=== PATIENT | female | born 1960 | race Caucasian/White ===

== ENCOUNTER 2023-09-17 23:32 | Emergency (ER) | payer OTHER, SELFPAY ==
[2023-09-17 23:43] VITALS: BP 130/90
--- NOTE | 2023-09-18 00:18 | ED.GENMED ---
History of Present Illness
<LUIS Oglesby - Last Filed: 09/18/23 01:11>
General
Chief Complaint: Throat Problem
Source: patient
Exam Limitations: none
Time Seen by Provider: 09/18/23 00:06
Travel History
Have you had any contact with someone who has COVID-19?: No
Do you have any symptoms of coronavirus? Fever > 100 degrees, chills, cough, shortness of breath, sore throat, loss of taste or smell, muscle aches, or headache?: No
History of Present Illness
History of Present Illness:
This is a 63 year old female that comes in with c/o possible aspiration of food. States that she today she was eating a slice of red cabbage and she feels like she may have aspirated it or its in her throat. States that she has Parkinson and at the
end of the day sometimes she has difficulty with swallowing. States that she is able to swallow her saliva and that she is not coughing and this may be nothing but she started to google and she got nervous. States that she is occasionally SOB in the
evening. Denies any fever, chills, chest pain, abd pain, nausea, vomiting, diarrhea, headache, dizziness, urinary burning.
Past History
<LUIS Oglesby - Last Filed: 09/18/23 01:11>
Past History
ED Past Medical History: Psychiatric (Anxiety depression, ) and Other (Parkinson's, Neck pain, )
ED Past Surgical History: (X 2), Orthopedic (Left humerus plate) and Other (Breast reduction, Tummy Tuck)
Social History
Tobacco: Non-smoker
Alcohol: None
Drug: None
Personal:
Living: with family
Review of Systems
<LUIS Oglesby - Last Filed: 09/18/23 01:11>
Review of Systems
All Other Systems: ROS reviewed and negative except as documented in HPI and ROS
Constitutional: Reports no symptoms; Denies fever or chills
EENT: Reports other (Feels like there is something in her throat)
Respiratory: Reports no symptoms; Denies cough or trouble breathing
Cardiac: Reports no symptoms; Denies chest pain
ABD/GI: Reports no symptoms; Denies abdominal pain, nausea, vomiting or diarrhea
: Reports no symptoms; Denies dysuria, frequency or urgency
Musculoskeletal: Reports no symptoms
Skin: Reports no symptoms
Neurological: Reports no symptoms; Denies dizzy or headache
Psychiatric: Reports no symptoms
Phy Exam
<LUIS Oglesby - Last Filed: 09/18/23 01:11>
General Physical Exam
General Presentation: no apparent distress
General age: appears stated age
General Skin: warm and dry
General Habitus: normal
General Mental: alert
General Hydration: appears well hydrated
ENT Exam
ENT Exam: TM's normal, pharynx normal, neck supple and other
Eye Exam
Eye Exam: EOMI
Cardiovascular Exam
Cardiovascular Exam: regular rate/rhythm, no edema, no murmur and normal peripheral pulses
Pulmonary Exam
Pulmonary Exam: lungs clear, no respiratory distress, no rales, chest non tender, no crackles, no rhonchi, no wheezing and no cough
Gastrointestinal Exam
Gastrointestinal Exam: normal bowel sounds, non tender, soft, no organomegaly, no pulsatile mass and non distended
Musculoskeletal Exam
Musculoskeletal Exam: full ROM and no edema
Skin Exam
Skin Exam: normal color, warm/dry, no rash and no petechia
Psychiatric Exam
Psychiatric Exam: normal mood/affect
Course
<LUIS Oglesby - Last Filed: 09/18/23 01:11>
Orders/Labs/Results
Orders:
Orders
09/18/23 00:18
Mag Hydrox/Al Hydrox/Simeth [Maalox] 30 ml PO NOW STA
CR Chest - 2 Views Urgent
Comment:
Reason For Exam: Questionable aspiration
09/18/23 01:06
Prednisone [Deltasone] 50 mg PO NOW STA
Vital Signs
Initial and Last Documented VS:
Initial Vital Signs
Temp Pulse Resp BP Pulse Ox
97.4 F 90 18 130/90 100
09/17/23 23:43 09/17/23 23:43 09/17/23 23:43 09/17/23 23:43 09/17/23 23:43
Last Documented Vital Signs
Temp Pulse Resp BP Pulse Ox
97.4 F 74 18 105/88 97
09/17/23 23:43 09/18/23 00:58 09/17/23 23:43 09/18/23 00:58 09/18/23 00:58
Tail Sawyer consulted with Physician
Tail Sawyer consulted with physician?: Yes
Name of Physician Consulted: Dr. Copeland
<Celina Copeland, DO - Last Filed: 09/18/23 01:21>
Orders/Labs/Results
Orders:
Orders
09/18/23 00:18
Mag Hydrox/Al Hydrox/Simeth [Maalox] 30 ml PO NOW STA
CR Chest - 2 Views Urgent
Comment:
Reason For Exam: Questionable aspiration
09/18/23 01:06
Prednisone [Deltasone] 50 mg PO NOW STA
Vital Signs
Initial and Last Documented VS:
Initial Vital Signs
Temp Pulse Resp BP Pulse Ox
97.4 F 90 18 130/90 100
09/17/23 23:43 09/17/23 23:43 09/17/23 23:43 09/17/23 23:43 09/17/23 23:43
Last Documented Vital Signs
Temp Pulse Resp BP Pulse Ox
97.4 F 74 18 105/88 97
09/17/23 23:43 09/18/23 00:58 09/17/23 23:43 09/18/23 00:58 09/18/23 00:58
<LUIS Oglesby - Last Filed: 09/18/23 01:11>
MDM/Problems Addressed
Differential Diagnosis Includes:
Esophageal scratch,
MDM/Problems Addressed:
This is a 63 year old female that comes in with c/o the possibility of aspiration a piece of food or it being stuck in her throat. States that with the Parkinson at night sometimes she has difficulty swallowing. States that she is not sure if she
aspirated the red cabbage or if it is in her throat.
Will get chest x-ray and given Maalox.
Back into see patient. Patient states that the Maalox did help. Patient is not coughing and is able to swallow water and her saliva. Explained that her chest x-ray is normal and that this may just be a little scratch. Patient was seen by Dr. Copeland
and reassured. Will discharge patient home.
Chronic conditions affecting care:
Parkinsons
Acute Exacerbation and/or Progression of Chronic Illness:
NA
<LUIS Oglesby - Last Filed: 09/18/23 01:11>
*Radiology
Radiology exam reviewed: preliminary read by ED provider (Chest- negative for signs of aspiration or Pneumonia. )
*Pulse Oximetry
Patient hypoxic: no
*EKG
Interpreted by ED Provider?: NA
Rate: EKG- N/A
*Histological Illustrator Interpretation
Rate: Histological Illustrator- N/A
*Critical Care Note
Total Time (30-74mins, 75-104mins- exclusive of procedures): Not Applicable
ED Attending Note
<LUIS Oglesby - Last Filed: 09/18/23 01:11>
-
Portions of this chart may have been created with voice recognition software.� Occasional wrong word or��sound alike� substitutions may have occurred due to the inherent limitations of voice recognition software.
<Celina Copeland DO - Last Filed: 09/18/23 01:21>
ED Attending Note
Patient seen and examined by attending physician: Yes
I performed the substantive portion of visit, reviewed & personally made and approve the management plan that is documented in note by myself or PATTY.: Yes
I performed a history and physical exam of patient and discussed management with resident, I reviewed resident's note and agree with documented findings and plan of care.: Yes
ED Attending Note:
63-year-old woman with history of Parkinson's disease presents with globus sensation that began this evening, worse when lying supine.
After 'googling' her symptoms, she was concerned for potential retained food, specifically concerned for a string of red cabbage in her posterior pharynx.
She ate a salad that contained thin strips of red cabbage for late lunch and admits that she had no difficulty swallowing while consuming the salad. She had no episodes of gagging or coughing.
She had no difficulty swallowing her dinner as well. No episodes of coughing nor choking.
Globus sensation is temporized when swallowing liquids and improved after a dose of Maalox.
She has not had a cough, no shortness of breath, no chest pain, no nausea nor vomiting.
She does admit to frequently attempting to clear her throat tonight, concern for potential retained food.
No history of similar episodes in the past.
63-year-old appears her stated age, bright and alert, pleasant, appears in no acute distress. Respirations are easy nonlabored. Speech is clear. There is no stridor no cough. No hoarseness.
HEENT: Oral mucosa is moist. Posterior pharynx is clear. There is note of very minimal uvular edema but no erythema, no ulcerations nor exudate.
Neck is supple, nontender, no adenopathy. Trachea is midline, nontender.
Lungs are clear to auscultation. Respirations are easy and unlabored.
History is not consistent with aspiration nor retained esophageal food bolus. She had no episodes of gagging or choking or coughing.
Exam is remarkable for very minimal uvular edema which I suspect is local trauma in nature from frequent, deliberate clearing of her throat.
She is swallowing well, handling secretions well.
Chest x-ray is unremarkable.
Mild uvulitis appears local irritation related. I suspect this is causing globus sensation.
Overall nontoxic in appearance and swallowing well without difficulty.
I have offered a one-time dose of prednisone and recommend supportive measures, elevating head of bed on a few extra pillows, staying well-hydrated on a daily basis.
Humidifier or vaporizer at nighttime.
Prompt follow-up with PCP for recheck.
Return precautions discussed.
Discharge Plan
Departure
Discharge Problem:
Throat irritation
Prescriptions:
No Action
carbidopa-levodopa 1 TABLET tablet extended release
1 tab PO .Q3H WHILE AWAKE
Patient Comments:
patient takes 2 doses of sinimet but one is extended release and she takes them at the same time
carbidopa-levodopa 1 TABLET tablet
1 tab PO .Q3H WHILE AWAKE
escitalopram oxalate 10 MG tablet
10 mg PO DAILY
rasagiline [Azilect] 1 MG tablet
1 mg PO DAILY
multivitamin with folic acid [Tab-A-Angy] 1 TABLET tablet
1 tab PO DAILY
Ropinirole
6 mg PO DAILY@1200
sennosides [senna] 1 TABLET tablet
2 tab PO BID 0RF
acetaminophen 325 MG tablet
650 mg PO Q4HPRN PRN (Reason: headache, temp >101F) 0RF
aspirin 325 MG tablet
325 mg PO DAILY Qty: 30 0RF
Rx Instructions:
one daily 4 weeks to prevent blood clots
magnesium hydroxide 30 ML suspension
30 ml PO [id number] PRN (Reason: constipation) 0RF
docusate sodium 100 MG capsule
100 mg PO BID 0RF
alum-mag hydroxide-simeth [Mag-Al Plus] 30 ML suspension
30 ml PO Q4HPRN PRN (Reason: indigestion) 0RF
oxycodone 5 MG tablet
5 mg PO Q4HPRN PRN (Reason: mild pain) Qty: 30 0RF
ferrous sulfate [FeroSul] 325 MG tablet
325 mg PO DAILY Qty: 30 0RF
Referrals:
Marvin Dias MD [Family Provider] -
Interventions
Interventions:
*Risk Screen - Suicide Last Done: 09/17/23 23:43
*Neglect/Abuse Screening Last Done: 09/17/23 23:43
ED-EENT Assessment Last Done: 09/18/23 00:44
ED- Pulmonary Assessment Last Done: 09/18/23 00:44
[2023-09-18] MEDS: MAALOX 30 ML PO (00:21)
[2023-09-18 00:58] VITALS: BP 105/88
[2023-09-18] MEDS: DELTASONE 50 MG PO (01:09)
== END 2023-09-18 01:19 | disposition home or self-care (01) ==
LOC: EMR 23:32
PROVIDERS: EMERGENCY PHYSICIAN Emergency Medicine; FAMILY PHYSICIAN Family Medicine
DX: R07.0 Pain in throat (principal); G20.A1 Parkinson's disease without dyskinesia, without mention of fluctuations
CPT/HCPCS: 99283; 71046

== ENCOUNTER → 2023-10-25 16:09 | Outpatient (REF) | payer OTHER, SELFPAY | LOC: RAD 16:09 | PROVIDERS: ATTENDING PHYSICIAN Obstetrics & Gynecology; FAMILY PHYSICIAN Family Medicine | DX: R10.2 Pelvic and perineal pain (principal) | CPT/HCPCS: 76830; 76856 ==

== ENCOUNTER → 2024-03-19 09:26 | Outpatient (REF) | payer OTHER, SELFPAY | LOC: HWWDC 09:26 | PROVIDERS: ATTENDING PHYSICIAN Obstetrics & Gynecology Gynecology; FAMILY PHYSICIAN Family Medicine | DX: Z12.31 Encounter for screening mammogram for malignant neoplasm of breast (principal) | CPT/HCPCS: 77063; 77067 ==

== ENCOUNTER 2024-08-20 06:40 | Day surgery (SDC) | payer OTHER, SELFPAY | END 2024-08-20 13:19 | disposition home or self-care (01) | LOC: GI 06:40 | PROVIDERS: ATTENDING PHYSICIAN Internal Medicine Gastroenterology | DX: Z12.11 Encounter for screening for malignant neoplasm of colon (principal); D12.5 Benign neoplasm of sigmoid colon | CPT/HCPCS: 45385; 88305 ==

== ENCOUNTER → 2025-03-20 10:03 | Outpatient (REF) | payer OTHER, SELFPAY | LOC: HWWDC 10:03 | PROVIDERS: ATTENDING PHYSICIAN Obstetrics & Gynecology Gynecology; FAMILY PHYSICIAN Family Medicine | DX: Z12.31 Encounter for screening mammogram for malignant neoplasm of breast (principal) | CPT/HCPCS: 77063; 77067 ==